=== PATIENT | male | born 1990 | race Caucasian/White ===

== ENCOUNTER → 2020-02-08 09:02 | Outpatient (CLI) | payer BC, SELFPAY ==
--- NOTE | 2020-02-08 09:11 | US_ITS ---
PROCEDURE: US TESTICULAR CLINICAL INDICATION: Intermittent left testicular pain for 5 months COMPARISON: No exams were available for comparison FINDINGS: Both testicles are of normal size and echogenicity. Right testicle measures 26 millimeters x 43 mm x 36 millimeters. The right epididymis measures 11 millimeters X 6 millimeters X 10 millimeters The left testicle measures 21 millimeters x 39 mm x 29 millimeters. The left epididymis measures 10 millimeters x 10 millimeters X 0 10 millimeters Normal bilateral doppler signal is demonstrated. There are no mass lesions. IMPRESSION: Negative Dictated by: Flash Blanca 02/08/2020 10:41 Electronically signed by Flash Blanca in [facility] 02/08/2020 10:41
== END ==
PROVIDERS: PCP Internal Medicine Adolescent Medicine; Visit Provider Nurse Practitioner Family
DX: N50.812 Left testicular pain (principal)
CPT/HCPCS: 76870

== ENCOUNTER → 2020-02-14 14:12 | Outpatient (CLI) | payer BC, SELFPAY | PROVIDERS: PCP Internal Medicine Adolescent Medicine; Visit Provider Nurse Practitioner Family | DX: R01.1 Cardiac murmur, unspecified (principal); R55 Syncope and collapse | CPT/HCPCS: 93306 ==

== ENCOUNTER 2020-08-17 16:40 | Day surgery (SDC) | payer BC, SELFPAY ==
[2020-08-17] VITALS (21 sets, daily range): BP systolic 123–173; BP diastolic 62–111; PULSE 55–94; RESP 12–21; TEMP 36.5–43; O2SAT 96–100; BMI 23.7
--- NOTE | 2020-08-17 17:01 | CT_ITS ---
Procedure: CT ABDOMEN PELVIS W CON Referring Doctor: Eloy Sandoval Patient Age:29Y CLINICAL INDICATION: abd pain Right lower quadrant pain started today COMPARISON: No exams were available for comparison TECHNIQUE: 75 cc Isovue 370 IV contrast utilized . No oral contrast given Helical the 1axial images obtained with sagittal and coronal reformats. All CT scans at the facility use one or more dose reduction, viz: automated exposure control, ma/kV adjustment per patient size (including targeted exams where dose is matched to indication, i.e. head), or iterative reconstruction technique. FINDINGS: Lower thorax: No acute finding lung bases clear heart normal size ABDOMEN: Liver: Unremarkable no masses or biliary dilatation. Gallbladder: Small gallbladder likely partially contracted. No radio opaque stones. Pancreas: No masses or peripancreatic fluid collections. Spleen: unremarkable small area splenosis medial the spleen the the Adrenals: unremarkable Kidneys/ureters: unremarkable no calculi nor urinary tract obstruction. Ureters unremarkable . Bladder: Upper normal wall thickness of may reflect the lack of distension at urinary bladder nondistended. No obvious stones or masses. Prostate unremarkable .. ABDOMEN & PELVIS: Stomach upper normal wall thickness stomach most likely reflecting lack distension.. Small bowel no dilatation or wall thickening.. Proximal small bowel upper normal in caliber. With slight increased fluid distal small bowel. Large bowel a moderate solid stool most evident at right colon Appendix: wall thickening with mild enhancement of mildly thickened appendiceal wall. The appendix is generous in size measuring nearly 9 mm diameter coronal image 24 and axial 96. Also note subtle ill-defined appearance at the margin of the appendix. These findings raise concern regarding early appendicitis.-Clinical correlation required.. No perforation. No no fluid collections of adjacent appendix. The would note scant amount of free fluid is seen at the right pelvic basin possibly related to the suspect early RLQ inflammatory changes,.. Peritoneum: .,. No free air. Lymph nodes: No enlarged lymph nodes apparent. The Vasculature: No evidence of abdominal aortic aneurysm. No retroperitoneal hemorrhage evident. Bones: No acute fracture IMPRESSION: Findings suggestive of minimal early acute appendicitis . Clinical correlation required. Scant free fluid right pelvic basin likely reflecting the above Borderline//Slight thickened appearance urinary bladder wall most likely reflect its lack of distension Dictated by: Dennis Langston MD 08/18/2020 00:09 Dennis Langston MD in [facility] 08/18/2020 00:09
[2020-08-17 17:13] LABS: Microscopic, Urine URINE MICROSCOPIC (MICROSCOPIC)
[2020-08-17 17:19] LABS: Appearance,Urine CLEAR (Clear); Bilirubin,Urine Negative (Negative); Blood, Urine 1+ (Negative); Color,Urine YELLOW (Yellow); Glucose,Urine (UA) Negative (Negative); Ketones,Urine Negative (Negative); Leukocyte Esterase,Urine Negative (Negative); Nitrate,Urine Negative (Negative); Protein,Urine Negative (Negative); Urobilinogen,Urine 0.2 EU/dl (0.2)
[2020-08-17 17:28] LABS: Amorphous Sediment,Urine Trace /lpf
[2020-08-17 17:35] LABS: Basophils % 0.4 % (0.1-2.0); Eosinophils % 0.1 % (0.1-12.0); Hematocrit 48.3 % (42.0-52.0); Hemoglobin 16.4 g/dL (14.1-18.0); Lymphocytes # 1.1 K/mm3 (0.7-4.5); Lymphocytes % 17.1 % (10-50); Mean Corpuscular HGB Conc 34.1 g/dL (31.8-35.4); Mean Corpuscular Hemoglobin 28.8 pg (27.0-31.2); Mean Corpuscular Volume 84.5 fl (80-94); Mean Platelet Volume 9.1 fl (7.4-10.4); Monocytes # 0.5 K/mm3 (0.1-1.0); Neutrophils % 74.4 % (37.0-80.0); Platelet Count 195 K/mm3 (142-424); Red Blood Count 5.71 M/mm3 (4.60-6.20); Red Cell Distribution Width 13.1 % (11.5-17.5); White Blood Count 6.7 K/mm3 (4.8-10.8)
--- NOTE | 2020-08-17 17:44 | HMH.EDABDPAI ---
ED Disposition Clinical Impression: Acute appendicitis Qualifiers: Acute appendicitis type: with localized peritonitis Appendicitis gangrene presence: unspecified whether gangrene present Appendicitis perforation presence: without perforation Appendicitis abscess presence: without abscess Qualified Code(s): K35.30 - Acute appendicitis with localized peritonitis, without perforation or gangrene Disposition: Admitted as Observation Condition on Discharge: Good Instructions: DI for Acute Abdominal Pain Referrals: Brandt Davis MD [Primary Care Provider] - 3 days - Critical Care Critical Care Time: No Attestation: On 08/17/20, the high probability of a clinically significant, sudden or life threatening deterioration of the following system(s) required my full and direct attention, intervention and personal management. The time I documented below is in addition to time spent performing reported procedures but includes the following listed in this critical care notation. Medical Decision Making - Cornelio Inquiry Pt receiving controlled substance: No Vital Signs: 08/17/20 16:41 Temperature 99.7 F H Temperature Source Oral Pulse Rate [Radial] 94 H Respiratory Rate 16 Blood Pressure [Right Arm] 156/111 H Blood Pressure Mean [Right Arm] 126 Blood Pressure Position [Right Arm] Sitting 02 Sat by Pulse Oximetry 97 Oxygen Delivery Method Room Air - Lab Data Lab Results 08/17/20 17:00: WBC 6.7, RBC 5.71, Hgb 16.4, Hct 48.3, MCV 84.5, MCH 28.8, MCHC 34.1, RDW 13.1, Plt Count 195, MPV 9.1, Neut % (Auto) 74.4, Lymph % (Auto) 17.1, Forrest % (Auto) 8.0, Eos % (Auto) 0.1, Baso % (Auto) 0.4, Neut # (Auto) 5.0, Lymph # (Auto) 1.1, Forrest # (Auto) 0.5, Eos # (Auto) 0.0, Baso # (Auto) 0.0 08/17/20 17:00: Sodium 137, Potassium 3.8, Chloride 101, Carbon Dioxide 25, Anion Gap 14.8, BUN 13, Creatinine 1.10, Estimated Creat Clear 115, Estimated GFR 80, Est GFR ( Amer) 96, Glucose 119 H, Calcium 10.0, Total Bilirubin 0.6, AST 40, ALT 33, Alkaline Phosphatase 82, Total Protein 8.7 H, Albumin 5.0, Globulin 3.7 H, Albumin/Globulin Ratio 1.4, Lipase 52 08/17/20 17:05: Urine Color Yellow, Urine Appearance Clear, Urine pH 6.0, Ur Specific [place] 1.010, Urine Protein Negative, Urine Glucose (UA) Negative, Urine Ketones Negative, Urine Blood 1+, Urine Nitrate Negative, Urine Bilirubin Negative, Urine Urobilinogen 0.2, Ur Leukocyte Esterase Negative, Urine RBC 3-5, Amorphous Sediment Trace 08/17/20 17:05: SARS-CoV-2 IgG Ab (Rapid) Positive A, SARS-CoV-2 IgM Ab (Rapid) Positive A Result diagrams: 08/17/20 17:00 08/17/20 17:00 Orders (Tests/Meds): ED MEDICATIONS Generic Name Dose Route Start Last Admin Trade Name Freq PRN Reason Stop Dose Admin Sodium Chloride 1,000 mls @ 999 mls/hr 08/17/20 18:45 Sod Chlor 0.9% 1000ml Bag IV 08/17/20 19:45 .Q1H1M POOL Discontinued Medications Generic Name Dose Route Start Last Admin Trade Name Freq PRN Reason Stop Dose Admin Iopamidol 75 ml 08/17/20 17:39 08/17/20 17:41 Iopamidol-370 (76%);100ml Bottle IV 08/17/20 17:40 75 ml ONCE ONE Administration Sodium Chloride 10 ml 08/17/20 17:39 08/17/20 17:41 Sodium Chloride 0.9% 10ml Syr (Rad Only) IV 08/17/20 17:40 10 ml ONCE ONE Administration ORDERS Category Date Time Status CT abdomen pelvis w con Stat Cat Scan 08/17/20 17:01 Taken Full Resp Panel w/COVID ([facility]) Routine Lab 08/17/20 18:38 Received Medical Decision Narrative: 29yo M evaluated for abdominal pain. HPI is concerning for acute appendicitis. Labs are pending at this time. Patient is already obtained CT of the abdomen and pelvis is pending read. Laboratory studies are unremarkable. CT my wet read appears to have an enlarged appendix. V RADS called to confirm early versus minimal appendicitis. Once receiving the call, surgery was consulted for further evaluation and possible appendectomy. Surgery plans to proceed with appendectomy at this time.
[2020-08-17 17:48] LABS: Chloride 101 mmol/L (98-107)
[2020-08-17 17:49] LABS: Potassium 3.8 mmoL/L (3.5-5.1); Sodium 137 mmol/L (136-145)
[2020-08-17 17:51] LABS: Alanine Aminotransferase 33 U/L (12-78); Alkaline Phosphatase 82 U/L (38-126); Anion Gap 14.8 mEq/L (5-15); Aspartate Amino Transferase 40 U/L (17-59); Bilirubin,Total 0.6 mg/dl (0.2-1.3); Blood Urea Nitrogen 13 mg/dl (9-20); Carbon Dioxide 25 mmol/L (22.0-30.0); Creatinine Clearance Estimated 115 mL/min (50-200); Estimated Glomerular Filt Rate 80 ml/min (>60); GFR (African American) 96 ML/MIN (>60)
[2020-08-17 17:52] LABS: Albumin/Globulin Ratio 1.4 (1.1-1.8); Globulin 3.7 g/dL (1.3-3.2); Glucose 119 mg/dl (74-100); Lipase 52 U/L (23-300); Total Protein,Serum 8.7 g/dl (6.3-8.2)
--- NOTE | 2020-08-17 18:11 | PC.NURSE ---
Dr leon speaking with Dr Dawson general surgery
[2020-08-17 18:37] LABS: Coronavirus 19 IgG Antibody Positive (Negative)
[2020-08-17 18:38] LABS: Coronavirus 19 IgM Antibody Positive (Negative)
--- NOTE | 2020-08-17 18:39 | PC.NURSE ---
Surgery team notified at this time that Dr Dawson wants to proceed with appendectomy at 1999. Return calls from Maxx @[phone], Catalina @ [phone], and Laura @ [phone]
--- NOTE | 2020-08-17 18:50 | PC.NURSE ---
pt and spouse updated on plan of care
[2020-08-17 19:02] LABS: Adenovirus,PCR Not Detected (NotDetected); Bordetella Pertussis Not Detected (NotDetected); Chlamydophila Pneumoniae, PCR Not Detected (NotDetected); Coronavirus 229E Not Detected (NotDetected); Coronavirus NL63 Not Detected (NotDetected); Coronavirus OC43 Not Detected (NotDetected); Coronovirus HKU1,PCR Not Detected (NotDetected); Human Metapneumovirus Not Detected (NotDetected); Influenza A, PCR Not Detected (NotDetected); Influenza AH1, 2009 Not Detected (NotDetected); Influenza AH1, PCR Not Detected (NotDetected); Influenza AH3,PCR Not Detected (NotDetected); Influenza B, PCR Not Detected (NotDetected); Mycoplasma Pneumoniae, PCR Not Detected (NotDetected); Parainfluenza 1, PCR Not Detected (NotDetected); Parainfluenza 2, PCR Not Detected (NotDetected); Parainfluenza 3, PCR Not Detected (NotDetected); Parainfluenza 4, PCR Not Detected (NotDetected); Respiratory Syncytial Virus Not Detected (NotDetected); Rhinovirus/Enterovirus Not Detected (NotDetected)
--- NOTE | 2020-08-17 19:23 | PC.NURSE ---
received patient report at this time
--- NOTE | 2020-08-17 19:32 | PC.NURSE ---
Surgery at bedside
[2020-08-17 20:19] LABS: Coronavirus 19, PCR Detected (NotDetected)
--- NOTE | 2020-08-17 20:19 | PC.NURSE ---
called lab to inform them the pts swab was positive for COVID
--- NOTE | 2020-08-17 21:24 | P.OP_ITS ---
Date of procedure: 08/17/20 Pre-op Diagnosis:: Acute appendicitis. Post-op Diagnosis:: Acute appendicitis. Procedure performed:: Laparoscopic appendectomy. Surgeon:: Rich Dawson MD BLOCK MAKING MACHINE OPERATOR:: Brandt Rogel Anesthesia: GETA Estimated blood loss (mL): 0 Operative findings:: Inflamed appendix. No rupture. Operative note:: Patient was properly identified and consent was obtained. Patient was brought to the operating room. Transferred the operating table. General anesthesia was administered. Abdomen was prepped and draped in standard surgical fashion. Midline abdominal incision was made above the umbilicus. 12 mm trocar was placed through the abdominal incision. Two 5 mm trochars were placed in the lower abdomen. Appendix was noted to be in a dependent position. Grasped and retracted anteriorly. Window was created in the mesoappendix. The appendix was divided at its base with an Endo MACK stapler. Staple line demonstrated no evidence of bleeding. Staple line intact. Mesoappendix was divided with harmonic scalpel. Appendix delivered to Endobag. Retrieved through the umbilical port site. Reinspection of the staple line demonstrated no evidence of dehiscence. No evidence of bleeding. Ports removed under direct visualization. Umbilical port site fascia was closed with interrupted Vicryl suture. Skin closed. Sterile applied. Patient taught procedure well. Transferred to the postanesthetic care unit that surgical or anesthetic complication. Condition: stable Disposition: same day Specimens:: Appendix. Complications:: None.
--- NOTE | 2020-08-17 21:37 | P.PN_ITS ---
[facility] Anesthesia Checklist - Patient Identification Patient Identification: Arm Band, Verbal (Name & ) - Structural Data Admitted From: Emergency Dept Planned Operative Procedure/s: lap appy Consent for Planned Operative Procedure(s) Verified: Yes Verified Documents: History and Physical - NPO Status Verified Time NPO: 13:00 - Additional verifications Patient : No Anesthesia Reactions: No Hx Blood Transfusions: No Blood Transfusion Reaction: No Cephalosporin Allergy: No Previous Colonoscopy: No - Cardiovascular Assessment Heart Sounds: S1 & S2 Pulse Strength: Baseline Pulse Rhythm: Regular Peripheral Edema: No - Airway Assessment C-Spine Mobility Assessed: Yes TMJ Mobility Assessed: Yes Dentition: Good Dentition - Neurological Assessment Level of Consciousness: Awake, Alert, Appropriate Hx Seizures: No Numbness or tingling in extremities: No - Anesthesia Plan Anesthesia Risk discussed: Yes Anesthesia Plan: Verified ASA Class: I Anesthesia Type: General [facility] History I have reviewed the patient's past medical history: Yes *Have you ever received a pneumonia vaccine?: Yes *Have you received a flu vaccine this season?: Yes Anesthesia experience/problems:: none - *Social History Alcohol Intake: current Alcohol Intake Frequency:: holidays/special occasions only Substance Use Type: other *Occupational Status:: employed *Travel in the last 8 weeks: None Family Hx:: Other
--- NOTE | 2020-08-17 21:39 | P.PN_ITS ---
[facility] Anesthesia Record Part I Intake, IV Amount: 600 Estimated blood loss (mL): 10 Urine output (mL): 0 Blood Products used (#): none Blood Pressure: 173/79 SaO2: 99 Pulse Rate: 62 Respiratory Rate: 18 Temperature: 98.1 F Patient is:: Drowsy, Nasal O2, Stable Stable to PACU at:: 21:33
--- NOTE | 2020-08-18 10:36 | HMH.ANESII ---
[facility] Anesthesia Record Part II Discharge Time: 22:03 Destination: Surgical Day Care (OP Surgery) PACU nurse assessment reviewed?: Yes Patient Condition:: Good Anesthesia Complications:: None Swallowing reflex intact?: Yes Cyanosis?: No Blood Pressure: 123/75 Pulse Rate: 68 Temperature: 97.7 F Mental Status: Alert & Oriented Pain level:: 5 Nausea and/or vomitting:: None Intake, IV Amount: 50
[2020-08-18 10:37] VITALS: BP 123/75; PULSE 68; TEMP 36.5
== END 2020-08-17 23:08 | disposition home or self-care (01) ==
LOC: UTC 16:43 → ER 16:55 → SDC 20:44
PROVIDERS: Emergency Provider Family Medicine; PCP Internal Medicine Adolescent Medicine; Visit Provider Surgery
PROC: 0DTJ4ZZ Resection of Appendix, Percutaneous Endoscopic Approach (ICD-10-PCS; CPT 44970; principal; 2020-08-17 20:00)
DX: K35.30 Acute appendicitis with localized peritonitis, without perforation or gangrene (principal); Z20.828 Contact with and (suspected) exposure to other viral communicable diseases
CPT/HCPCS: 44970; 74177; 80053; 81001; 83690; 85025; 86328; 87581; 87633; 87798; 96365; 99284; J0131; J1335; J2405; J2710; Q9967

== ENCOUNTER 2020-12-27 19:41 | Emergency (ER) | payer BC, SELFPAY ==
[2020-12-27 19:45] VITALS: BP 122/58; PULSE 83; RESP 21; TEMP 36.6; O2SAT 97; BMI 24.4
--- NOTE | 2020-12-27 20:34 | HMH.EDUTC ---
[facility] [place] Disposition Clinical Impression: Laceration of left hand Disposition: Home, Self-Care Condition on Discharge: Good Instructions: DI for Laceration Repair-Skin Glue Additional Instructions: Keep the wound clean and dry. Keep a dressing on it if you are going to be getting it dirty. Watch the for signs of infection, such as redness, swelling, drainage, fever. etc. take tylenol or ibuprofen for pain. Follow up with your regular doctor for any issues. GO TO THE ER FOR ANY WORSENING SYMPTOMS OR CONCERNS. Referrals: Brandt Davis MD [Primary Care Provider] - Time of Disposition: 20:39 Medical Decision Making - Medical Records Medical records reviewed: No: I reviewed the patient's medical records. - Cornelio Inquiry Pt receiving controlled substance: No Vital Signs: 12/27/20 19:45 12/27/20 20:45 Temperature 97.8 F 97.8 F Temperature Source Temporal Artery Scan Pulse Rate 83 Pulse Rate [Right Brachial] 83 Respiratory Rate 21 21 Blood Pressure 122/58 L Blood Pressure [Right Arm] 122/58 L Blood Pressure Mean [Right Arm] 79 Blood Pressure Source [Right Arm] Automatic Cuff Blood Pressure Position [Right Arm] Sitting 02 Sat by Pulse Oximetry 97 Oxygen Delivery Method Room Air [facility] [place] HPI - General Stated complaint: lac to r wrist Time Seen by Provider: 12/27/20 20:34 Mode of Arrival: Ambulatory Source of Information: Patient Limitations: No Limitations Description of Symptoms (Recalled from Triage Doc. 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 PATIENT IS UP TO DATE ON TDAP HEENT Symptoms (Recalled from RN notes): No Resp Symptoms (Recalled from RN notes): No Skin Symptoms (Recalled from RN notes): Yes MS Symptoms (Recalled from RN notes): No Functional Status (Recalled from RN notes): WNL - History of Present Illness Provider Complaint: He states that he was at home cutting something with a razor knife. He slipped and cut the lateral aspect of his left hand. His tetanus immunization is up to date. - Related Data Home Medications Medication Instructions Recorded Confirmed No Known Home Medications 09/04/18 12/27/20 Allergies Allergy/AdvReac Type Severity Reaction Status Date / Time No Known Allergies Allergy Verified 08/29/20 10:46 - Worker's Comp Is this a Worker's Comp case?: No [facility] History - Hepatitis A Screen Drug use history?: No High risk sexual behaviors?: No History of sexually transmitted infection?: No Currently employed?: No Childcare worker?: No Do you have indoor plumbing?: Yes Do you have electricity?: Yes Attestation statement:: This patient has been screened for Hepatitis A risk factors. I have reviewed the patient's past medical history: Yes Medical History: Denies:: Seizures Other Medical History: Denies: Blood Transfusion Reaction Other Surgeries: Yes: Appendectomy - Social History Smoking Status: Never smoker Alcohol Intake: never Alcohol Intake Frequency:: holidays/special occasions only Substance Use Type: other Occupational Status: other Family Hx:: Other ROS Obtained: Yes All systems reviewed & no additional complaints - Constitutional Constitutional: Denies chills, Denies fever(s) - Integumentary/Breasts Skin/Breast: Reports as per HPI - Neurologic Neurologic: Denies tingling/numbness/burning sensations Physical Exam - General General appearance: alert, in no apparent distress - Head Head exam: atraumatic, normocephalic, normal inspection - Eye Eye exam: Present: normal appearance, PERRL, EOMI - ENT ENT exam: Present: normal exam, normal oropharynx, mucous membranes moist, TM's normal bilaterally, normal external ear exam - Neck Neck exam: Present: normal inspection, full ROM, trachea midline. Absent: meningismus, lymphadenopathy - Chest Chest inspection: Present: normal inspection, symmetric chest wall rise. Absent: tenderness - Respiratory R
[2020-12-27 20:45] VITALS: BP 122/58; PULSE 83; RESP 21; TEMP 36.6; O2SAT 97
== END 2020-12-27 20:49 | disposition home or self-care (01) ==
PROVIDERS: Emergency Provider Nurse Practitioner Family; PCP Internal Medicine Adolescent Medicine
DX: S61.412A Laceration without foreign body of left hand, initial encounter (principal); W26.0XXA Contact with knife, initial encounter; Y92.89 Other specified places as the place of occurrence of the external cause
CPT/HCPCS: 12001; 99202; G0463

== ENCOUNTER 2023-11-12 16:17 | Emergency (ER) | payer BC, SELFPAY ==
[2023-11-12 16:40] VITALS: BP 153/85; PULSE 90; RESP 20; TEMP 36.9; O2SAT 96; BMI 23.7
--- NOTE | 2023-11-12 16:48 | ED_ITS ---
Discharge Plan Disposition Patient Disposition: Home, Self-Care Condition: Good Prescriptions Prescriptions: New azithromycin [Zithromax] 250 mg tablet 250 mg PO UD DOSE PK Qty: 6 0RF Rx Instructions: Take two (2) tablets today, then one (1) tablet days #2 thru #5 benzonatate 100 mg capsule 100 mg PO TIDP PRN (Reason: Cough) Qty: 30 0RF methylprednisolone 4 mg Tablets,Dose Pack 4 mg PO DIRECTED 6 Days Qty: 21 0RF Rx Instructions: Take 1 pack as directed for 6 days Referrals Follow up/Referrals: Brandt Davis MD [Primary Care Provider] - See instructions Activity Restrictions/Add. Instructions Additional Instructions/Restrictions: Drink plenty of fluids. Take tylenol or ibuprofen for pain or fever. Take the medications as directed. Follow up with your regular doctor. GO TO THE ER FOR ANY WORSENING SYMPTOMS Don't start the oral steroids until tomorrow since you had the steroid shot here today. Clinical Impressions Clinical Impression: Acute bronchitis Instructions Patient Instructions: Acute Bronchitis, Methylprednisolone, Azithromycin, Dexamethasone Injection Discharge ED Provider: Liam Lyons [facility] General Stated complaint: cough Time Seen by Provider: 11/12/23 16:48 History of Present Illness Provider Complaint: He states that for the past 2 weeks he has had chest congestion and a productive cough. He denies any fever/chills/body aches. Related Data Previous Rx's Medication Instructions Recorded azithromycin 250 mg tablet 250 mg PO UD DOSE PK #6 tabs 11/12/23 (Zithromax) benzonatate 100 mg capsule 100 mg PO TIDP PRN Cough #30 caps 11/12/23 methylprednisolone 4 mg tablets in 4 mg PO DIRECTED 6 days #21 tabs 11/12/23 a dose pack Allergies Allergy/AdvReac Type Severity Reaction Status Date / Time No Known Allergies Allergy Verified 08/29/20 10:46 [facility] Disclaimer: The information contained in this section may have been updated after the patient was seen, as this information can be updated by other users. Social History Smoking Status: Never smoker alcohol intake: never substance use type: other current occupational status: other Travel in the last 8 weeks: None ROS Obtained: Yes All systems reviewed & no additional complaints except as documented Constitutional Constitutional: Reports chills and Reports fever(s) Eyes Eyes: Denies eye discharge ENT Ears, Nose, Mouth, and Throat: Reports as per HPI Cardiovascular Cardiovascular: Denies chest pain Respiratory Respiratory: Denies shortness of breath, Reports chest congestion, Reports cough, Denies stridor and Denies wheezing Gastrointestinal Gastrointestingal: Reports nausea; Denies abdominal pain, constipation, cramping, diarrhea or vomiting Musculoskeletal Musculoskeletal: Denies arthralgias Integumentary/Breasts Skin/Breast: Denies rash Neurologic Neurologic: Denies paresthesias Allergic/Immunologic Allergic/Immunologic: Denies wheezing Physical Exam General General appearance: alert and in no apparent distress Eye Eye exam: Present normal appearance, PERRL and EOMI ENT ENT exam: Present mucous membranes moist and normal external ear exam Expanded ENT Exam External ear exam: Present normal external inspection TM/Canal exam: Bilateral TM: erythema and bulging Nose exam: Absent sinus tenderness Nasal speculum exam: Bilateral: normal Mouth exam: Present normal external inspection; Absent drooling Teeth exam: Present normal inspection Throat exam: Present tonsillar erythema and tonsillomegaly Neck Neck exam: Present normal inspection, full ROM and trachea midline; Absent tenderness, lymphadenopathy or thyromegaly Chest Chest inspection: Present normal inspection and symmetric chest wall rise; Abse nt tenderness or rash Respiratory Respiratory exam: Present normal lung sounds bilaterally; Absent respiratory distress, wheezes, stridor or accessory muscle use Cardiovascular Cardiovascular exam: Present regular rate, normal rhythm and normal heart sounds Abdominal Exam Abdominal exam: Present soft; Absent distention, tenderness, guarding, rebound or rigidity Extremities Exam Extremities exam: Present normal inspection, full ROM and normal capillary refill; Absent tenderness or calf tenderness Back Exam Back exam: Present normal inspection and full ROM; Absent tenderness Neurological Exam Neurological exam: Present alert and oriented X3 Psychiatric Psychiatric exam: Present normal affect and normal mood Skin Skin exam: Present warm, dry, intact and normal color Lymphatic Lymphatic Findings: no adenopathy Medical Decision Making Medical Records Medical records reviewed: No I reviewed the patient's medical records. Cornelio Inquiry Pt receiving controlled substance: No
[2023-11-12 17:35] VITALS: BP 153/85; PULSE 90; RESP 20; TEMP 36.9; O2SAT 96
[2023-11-12] MEDS: DEXAMETHASONE 4MG/ML 1ML VIAL 8 MG IM (17:35)
== END 2023-11-12 17:44 | disposition home or self-care (01) ==
PROVIDERS: Emergency Provider Nurse Practitioner Family; PCP Internal Medicine Adolescent Medicine
DX: J20.9 Acute bronchitis, unspecified (principal); R05.9 Cough, unspecified
CPT/HCPCS: 96372; 99212; 99214; G0463

== ENCOUNTER 2024-10-26 14:21 | Outpatient (CLI) | payer BC, SELFPAY ==
[2024-10-26 15:08] LABS: Basophils # 0.1 K/mm3 (0-0.2); Basophils % 0.8 % (0.1-2.0); Eosinophils # 0.2 K/mm3 (0.0-0.4); Eosinophils % 1.7 % (0.1-12.0); Hematocrit 40.8 % (42.0-52.0); Hemoglobin 13.9 g/dL (14.1-18.0); Lymphocytes % 21.8 % (10-50); Mean Corpuscular HGB Conc 34.1 g/dL (31.8-35.4); Mean Corpuscular Hemoglobin 29.1 pg (27.0-31.2); Mean Corpuscular Volume 85.4 fl (80-94); Mean Platelet Volume 11.3 fl (7.4-10.4); Monocytes # 0.7 K/mm3 (0.1-1.0); Platelet Count 261 K/mm3 (142-424); Red Blood Count 4.78 M/mm3 (4.60-6.20); Red Cell Distribution Width 12.3 % (11.5-17.5)
[2024-10-26 15:16] LABS: Anion Gap 11.8 mEq/L (5-15); Blood Urea Nitrogen 18 mg/dl (9-20); Calcium 9.4 mg/dl (8.4-10.2); Carbon Dioxide 26 mmol/L (22.0-30.0); Chloride 105 mmol/L (98-107); Estimated Glomerular Filt Rate 78 ml/min (>60); GFR (African American) 94 ML/MIN (>60); Glucose 85 mg/dl (74-100); Potassium 3.8 mmoL/L (3.5-5.1); Sodium 139 mmol/L (136-145)
== END 2024-10-26 23:59 | disposition home or self-care (01) ==
LOC: PREOP 14:21
PROVIDERS: PCP Nurse Practitioner Family; Visit Provider Surgery
DX: N49.2 Inflammatory disorders of scrotum (principal)
CPT/HCPCS: 80048; 85025

== ENCOUNTER 2024-10-27 06:58 | Day surgery (SDC) | payer BC, SELFPAY ==
[2024-10-26 15:21] VITALS: BMI 26.2
[2024-10-27] VITALS (10 sets, daily range): BP systolic 94–129; BP diastolic 51–88; PULSE 62–81; RESP 10–16; TEMP 36.3–36.7; O2SAT 94–99
[2024-10-27] MEDS: 0.9 % SODIUM CHLORIDE 1000ML 1,000 ML 25 ML IV (07:25)
--- NOTE | 2024-10-27 07:39 | P.PNANES_ITS ---
[facility] Disclaimer: The information contained in this section may have been updated after the patient was seen, as this information can be updated by other users. Medical History No significant past medical history Surgical History History of laparoscopic appendectomy Family History Other No significant family history Social History (Updated 10/27/24 @ 07:15 by Chantal Lutz RN) Smoking Status: Never smoker alcohol intake: never substance use type: other current occupational status: employed Travel in the last 8 weeks: None Have you lived/traveled outside [place] in past 30 days?: No Contact w/someone who lives/traveled outside US past 30 days?: No Exposure to someone with infectious disease in past 14 days?: No Do you have a fever (greater than 100.4 F or 38 C)?: No Have you tested positive for COVID-19: No Exposed to someone with COVID-19 in past 14 days?: No Do you have a sore throat?: No Do you have a cough?: No Do you have any weakness?: No Are you experiencing any nausea/vomitting?: No Do you have any diarrhea?: No Are you experiencing any unusual bleeding?: No Do you have any muscle aches/pain?: No Do you have any abdominal pain?: No Are you experiencing loss of taste or smell?: No [facility] Anesthesia Checklist Patient Identification Patient Identification: Arm Band Structural Data Admitted From: Home Planned Operative Procedure/s: I&D Scrotal Abscess Consent for Planned Operative Procedure(s) Verified: Yes Verified Documents: Surgical Consent and History and Physical NPO Status Verified Time NPO: 00:00 Additional verifications Anesthesia Reactions: No Hx Blood Transfusions: No Blood Transfusion Reaction: No Airway Assessment Mallampati Score:: Class II C-Spine Mobility Assessed: Yes TMJ Mobility Assessed: Yes Dentition: Good Dentition Neurological Assessment Level of Consciousness: Awake, Alert and Appropriate Anesthesia Plan Anesthesia Risk discussed: Yes Anesthesia Plan: Verified ASA Class: I Anesthesia Type: General
[2024-10-27] MEDS: METRONIDAZ/SOD CHL 500 MG/100 ML PIGGYBACK 100 MG IV (07:50)
[2024-10-27] MEDS: CEFAZOLIN SODIUM 2 GM in 0.9 % SODIUM CHLORIDE 100 ML IV (07:50)
[2024-10-27] MEDS: LIDOCAINE 1% 20ML MDV 20 ML (08:04)
--- NOTE | 2024-10-27 08:13 | P.OP_ITS ---
Date of procedure: 10/27/24 Pre-op Diagnosis:: Left scrotal abscess Post-op Diagnosis:: Same Procedure performed:: Incision and drainage of left scrotal abscess Surgeon:: Jay Jay Zimmerman MD NANOTECHNICIAN:: Liam Kidd Anesthesia: local and LMA Estimated blood loss (mL): 5 Operative findings:: Focal pocket of purulence with surrounding induration Operative note:: After informed consent was obtained the patient was taken to the operating room and placed in the supine position. General anesthesia with laryngeal mask airway was achieved. His scrotum/surrounding region was prepped and draped in a sterile fashion. Electrocautery was utilized to incise the lateral margin of the palpable abscess. Purulent fluid was evacuated. Surrounding indurated tissue noted. The cavity was packed with gauze and the entire region was infiltrated with 1% lidocaine. Dressings were applied and the patient was transferred to recovery in stable condition. Condition: stable Disposition: PACU Specimens:: None Complications:: No immediate
--- NOTE | 2024-10-27 08:33 | EXP.ANES.I ---
[facility] Anesthesia Record Part I Anesthesia Record I Intake, IV Amount: 750 Hydration: Adequate Estimated blood loss (mL): 5 Urine output (mL): 0 Blood Products used (#): none Blood Pressure: 96/59 SaO2: 94 Pulse Rate: 67 Airway Patency: Patent Respiratory Rate: 10 Temperature: 97.4 F Patient is:: Drowsy and Stable Stable to PACU at:: 08:21
--- NOTE | 2024-10-27 09:18 | EXP.ANES.II ---
[facility] Anesthesia Record Part II Anesthesia Record Part II Discharge Time: 08:51 Destination: Surgical Day Care (OP Surgery) PACU nurse assessment reviewed?: Yes Patient Condition:: Good Anesthesia Complications:: None Swallowing reflex intact?: Yes Airway Patency: Patent Cyanosis?: No Blood Pressure: 106/52 SaO2: 98 Respiratory Rate: 16 Pulse Rate: 81 Temperature: 97.4 F Mental Status: Alert & Oriented Pain level:: 0 Nausea and/or vomitting:: None Intake, IV Amount: 0 Hydration: Adequate
== END 2024-10-27 09:25 | disposition home or self-care (01) ==
PROVIDERS: PCP Internal Medicine Adolescent Medicine; Visit Provider Surgery
PROC: (CPT 55100; principal; 2024-10-27 08:30)
DX: N49.2 Inflammatory disorders of scrotum (principal)
CPT/HCPCS: 55100; 96374; J0690; J1100; J2250; J2405; J3010; J7030

== ENCOUNTER 2024-12-14 13:56 | Outpatient (CLI) | payer BC, SELFPAY ==
--- NOTE | 2024-12-14 13:57 | CT_ITS ---
FINAL REPORT TECHNIQUE: Axial images through the abdomen and pelvis were performed without contrast. This study was performed with techniques to keep radiation doses as low as reasonably achievable, (ALARA). Individualized dose reduction techniques using automated exposure control or adjustment of mA and/or kV according to the patient's size were employed. CLINICAL HISTORY: STONE PROTOCOL, LEFT FLANK PAIN, HEMATURIA COMPARISON: None FINDINGS: Abdomen: The lung bases are clear. The liver parenchyma is homogeneous. The gallbladder is present. The spleen, pancreas, and adrenals are unremarkable. There are tiny nonobstructing right renal stones noted. There is mild left hydronephrosis and mild hydroureter to the level of a small 2 mm stone in the distal left ureter, best seen on image #114 of series 3. There is mild stranding surrounding the distal ureter at this level. Pelvis: The urinary bladder is unremarkable. The appendix is not visualized and may be surgically absent. There is no pelvic mass or free fluid. IMPRESSION: Mild left hydronephrosis and hydroureter to the level of a small 2 mm stone in the distal left ureter as described. There is mild stranding surrounding the distal ureter at this level consistent with inflammatory change. Tiny nonobstructing right renal stones are present as well. Reviewed, Interpreted and Dictated by Rich Bai MD Transcribed by Lena Calhoun Authenticated and [facility]
== END 2024-12-14 23:59 | disposition home or self-care (01) ==
LOC: RAD 13:56
PROVIDERS: PCP Nurse Practitioner Family; Visit Provider Nurse Practitioner Family
DX: N13.30 Unspecified hydronephrosis (principal)
CPT/HCPCS: 74176

== ENCOUNTER 2024-12-14 22:31 | Emergency (ER) | payer BC, SELFPAY ==
[2024-12-14 22:42] VITALS: BP 135/92; PULSE 65; RESP 18; TEMP 36.7; O2SAT 100; BMI 25.7
--- NOTE | 2024-12-14 22:47 | ED_ITS ---
Discharge Plan Disposition Patient Disposition: Home, Self-Care Condition: Good Prescriptions Prescriptions: New ondansetron 4 mg tablet,disintegrating 4 mg PO Q6H PRN (Reason: nausea and vomiting) Qty: 12 0RF oxycodone 5 mg tablet 5 mg PO Q6H PRN (Reason: pain) Qty: 12 0RF No Action clindamycin HCl 300 mg Capsule 300 mg PO TID Referrals Follow up/Referrals: Patel Loja MD [Staff Physician] - See instructions (2mm stone at UVJ, should pass itself, needs follow up) Brandt Davis MD [Primary Care Provider] - See instructions Activity Restrictions/Add. Instructions Additional Instructions/Restrictions: Your evaluated in the ER and are appropriate for discharge at this time. Continue taking the tamsulosin that you were previously prescribed. Take Tylenol and ibuprofen if needed for pain, do not exceed the recommended dose on the bottle. Drink water and eat small snack each time you take these medications to avoid side effects. If these medications do not control your pain, then take the oxycodone if needed for severe breakthrough pain. This medication may make you sleepy, do not drive or operate machinery. It has the potential for addiction so only take this medication as directed. Drink plenty of fluids to help pass the stone. Urinate through the strainer to capture the stone when it passes. Please make an appointment with Dr. Loja for urology follow-up. Also follow-up closely with your primary care doctor for reevaluation. Return to the ER with any new, worsening, or otherwise concerning symptoms. Clinical Impressions Clinical Impression: Acute left flank pain Urolithiasis Qualifiers: Urinary calculus location: ureter Qualified Code(s): N20.1 - Calculus of ureter Instructions Patient Instructions: Kidney Stones -- Adult Print Language Print Language: Grenadian Discharge ED Provider: Juvencio Piña General Adult HPI General Chief complaint: Back Pain/Injury Stated complaint: back pain and abdominal pain Time Seen by Provider: 12/14/24 22:34 Mode of Arrival: Ambulatory Source of Information: Patient Description of Symptoms (Recalled from ER Triage Doc. by RN): Pt to ED with c/o left flank pain starting this morning. pt reports he was seen by PCP and had CT scan done. denies urinary sx. History of Present Illness HPI narrative: This is a 34-year-old male, otherwise healthy who presents with left flank pain that began this morning. States that it was very severe this morning causing him to vomit. Was seen by his PCP and had an outpatient CT done revealing a kidney stone. Was prescribed Flomax by his primary care doctor and told that he may have already passed the kidney stone. States that his pain recurred this evening. 8 out of 10 on arrival however improving to 6 out of 10 by the time I evaluate patient. Reports swollen of blood in the urine. Denies any fever. Denies any testicular pain or swelling. Related Data Home Medications ?Medication ?Instructions ?Recorded ?Confirmed clindamycin HCl 300 mg capsule 300 mg PO TID 10/26/24 11/02/24 Previous Rx's ?Medication ?Instructions ?Recorded ondansetron 4 mg disintegrating 4 mg PO Q6H PRN nausea and 12/14/24 tablet vomiting #12 tabs oxycodone 5 mg tablet 5 mg PO Q6H PRN pain #12 tabs 12/14/24 Allergies Allergy/AdvReac Type Severity Reaction Status Date / Time No Known Allergies Allergy Verified 11/02/24 14:10 [facility] Disclaimer: The information contained in this section may have been updated after the patient was seen, as this information can be updated by other users. Medical History (Updated 12/14/24 @ 22:51 by Juvencio Piña MD) No significant past medical history Surgical History (Updated 11/02/24 @ 14:10 by KRISTEN Rodriguez) History of incision and drainage History of laparoscopic appendectomy Family History Other No significant family history Social History Smoking Status: Never smoker alcohol intake: never substance use type: other current occupational status: employed Travel in the last 8 weeks?: None Have you lived/traveled outside [place] in past 30 days?: No Contact w/someone who lives/traveled outside US past 30 days?: No Exposure to someone with infectious disease in past 14 days?: No Do you have a fever (greater than 100.4 F or 38 C)?: No Have you tested positive for COVID-19?: No Exposed to someone with COVID-19 in past 14 days?: No Do you have a sore throat?: No Do you have a cough?: No Do you have any weakness?: No Do you have any diarrhea?: No Are you experiencing any unusual bleeding?: No Do you have any muscle aches/pain?: No Do you have any abdominal pain?: No Are you experiencing loss of taste or smell?: No Other Medical History Have you received the Flu Vaccine for this season: Yes Have you received the Pneumonia Vaccine: No ROS Obtained: Yes All systems reviewed & no additional complaints except as documented Physical Exam General General appearance: alert and in no apparent distress Head Head exam: atraumatic Eye Eye exam: Present normal appearance, PERRL and EOMI Neck Neck exam: Present normal inspection and full ROM Chest Chest inspection: Present symmetric chest wall rise Respiratory Respiratory exam: Present normal lung sounds bilaterally; Absent respiratory distress Cardiovascular Cardiovascular exam: Present regular rate and normal rhythm Abdominal Exam Abdominal exam: Present soft and other (No flank tenderness); Absent distention, tenderness, guarding or rebound Extremities Exam Extremities exam: Present normal inspection Neurological Exam Neurological exam: Present alert and oriented X3 Psychiatric Psychiatric exam: Present normal affect and normal mood Skin Skin exam: Present warm and dry Medical Decision Making Medical Records Medical records reviewed: Yes I reviewed the patient's medical records. Screening: Per USPSTF and CDC recommendations, given the prevalence of disease in our region, it is our hospital?s policy to screen for HIV and viral Hepatitis for all patients aged 18 and over and those with ongoing risk factors. MR Comment: CT abdomen pelvis without IV contrast that was performed today, revealing distal left ureter 2 mm stone with mild left hydronephrosis and hydroureter Cornelio Inquiry Pt receiving controlled substance: No Vital Signs: 12/14/24 22:42 Temperature 98.0 F Temperature Source Oral Pulse Rate [Left Radial] 65 Respiratory Rate 18 Blood Pressure [Right Arm] 135/92 H Blood Pressure Mean [Right Arm] 106 Blood Pressure Source [Right Arm] Automatic Cuff Blood Pressure Position [Right Arm] Sitting 02 Sat by Pulse Oximetry 100 Oxygen Delivery Method Room Air Lab Data Lab Results 12/14/24 22:37: Urine Color Yellow, Urine Appearance Slightly cloudy, Urine pH 7.0, Ur Specific [place] 1.020, Urine Protein Negative, Urine Glucose (UA) Negative, Urine Ketones Negative, Urine Blood 1+ A, Urine Nitrate Negative, Urine Bilirubin Negative, Urine Urobilinogen 0.2, Ur Leukocyte Esterase Negative, Urine RBC 10-20, Urine WBC 3-5, Amorphous Sediment 3+, Urine Bacteria 2+, Urine Mucus 1+ 12/14/24 22:53: WBC 7.5, RBC 4.65, Hgb 13.7 L, Hct 40.1 L, MCV 86.2, MCH 29.5, MCHC 34.2, RDW 12.5, Plt Count 259, MPV 11.8 H, Neut % (Auto) 62.3, Lymph % (Auto) 29.0, [place] % (Auto) 6.2, Eos % (Auto) 1.5, Baso % (Auto) 0.7, Neut # (Auto) 4.7, Lymph # (Auto) 2.2, [place] # (Auto) 0.5, Eos # (Auto) 0.1, Baso # (Auto) 0.1, Sodium 138, Chloride 106, Carbon Dioxide 24, BUN 14, Creatinine 1.20, Estimated Creat Clear 110, Estimated GFR 70, Est GFR ( Amer) 84, G lucose 148 H, Calcium 9.8, Total Bilirubin 0.8, AST 39, ALT 37, Alkaline Phosphatase 71, Total Protein 7.3, Albumin 4.9, Globulin 2.4, Albumin/Globulin Ratio 2.0 H 12/14/24 22:53 12/14/24 22:53 Orders (Tests/Meds): ED MEDICATIONS Discontinued Medications Generic Name Dose Route Start Last Admin Trade Name Freq PRN Reason Stop Dose Admin Ketorolac Tromethamine 15 mg 12/14/24 22:46 12/14/24 22:49 Ketorolac 30mg/Ml Vial IV 12/14/24 22:47 15 mg ONCE ONE Administration Oxycodone HCl 5 mg 12/14/24 22:46 12/14/24 22:49 Oxycodone 5mg Immediate Release Tablet PO 12/14/24 22:47 5 mg ONCE ONE Administration ORDERS Category Date Time Status CBC w/Auto Diff [Complete Blood Count Auto Diff] Stat Lab 12/14/24 22:53 Completed CMP [Comprehensive Metabolic Panel] Stat Lab 12/14/24 22:53 Results HIV Combo Stat Lab 12/14/24 22:53 Received Hepatitis C Ab Qual. W/ RFX Stat Lab 12/14/24 22:53 Received Urinalysis and Microscopic Stat Lab 12/14/24 22:37 Completed Urine Culture Stat Micro 12/14/24 22:37 Received Medical Decision Narrative: In summary, this otherwise healthy 34-year-old male presents to the emergency department today with left flank pain that began this morning. On initial evaluation patient is afebrile, hemodynamically stable, nontoxic-appearing. Differential diagnosis includes but is not limited to urolithiasis, pyelonephritis, hydronephrosis, JUDITH. Based on these concerns, I ordered CBC, CMP, urinalysis. Considered CT abdomen pelvis without IV contrast, however this was performed earlier today and available to review, independently interpreted by me revealing of a small 2 mm stone in distal ureter with proximal mild hydronephrosis.. Patient received intramuscular Toradol and oxycodone for treatment. Patient already prescribed Flomax by PCP. Labs personally reviewed demonstrate unremarkable CBC and CMP, no JUDITH, no clear UTI. On reassessment patient reporting significant symptomatic improvement. Appropriate for discharge with urology follow-up at this time. Patient is likely to pass urolithiasis without intervention. Already prescribed Flomax by PCP. Prescribed a course of oxycodone for breakthrough pain and counseled on treatment at home with Motrin and Flomax. Critical Care Critical Care Time Critical Care Time: No
[2024-12-14] MEDS: OXYCODONE 5MG IMMEDIATE RELEASE TABLET 5 MG PO (22:49)
[2024-12-14] MEDS: KETOROLAC 30MG/ML VIAL 15 MG IV (22:49)
[2024-12-14 23:00] VITALS: BP 118/95; PULSE 73; O2SAT 97
[2024-12-14 23:01] LABS: Microscopic, Urine URINE MICROSCOPIC (MICROSCOPIC)
[2024-12-14 23:02] LABS: Bilirubin,Urine Negative (Negative); Blood, Urine 1+ (Negative); Color,Urine YELLOW (Yellow); Glucose,Urine (UA) Negative (Negative); Ketones,Urine Negative (Negative); Leukocyte Esterase,Urine Negative (Negative); Nitrate,Urine Negative (Negative); Protein,Urine Negative (Negative); Urobilinogen,Urine 0.2 EU/dl (0.2)
[2024-12-14 23:07] LABS: Appearance,Urine Slightly Cloudy (Clear)
[2024-12-14 23:14] LABS: Basophils # 0.1 K/mm3 (0-0.2); Basophils % 0.7 % (0.1-2.0); Eosinophils # 0.1 Kmm3 (0.0-0.4); Eosinophils % 1.5 % (0.1-12.0); Hematocrit 40.1 % (42.0-52.0); Hemoglobin 13.7 g/dL (14.1-18.0); Lymphocytes # 2.2 K/mm3 (0.7-4.5); Mean Corpuscular HGB Conc 34.2 g/dL (31.8-35.4); Mean Corpuscular Hemoglobin 29.5 pg (27.0-31.2); Mean Corpuscular Volume 86.2 fl (80-94); Mean Platelet Volume 11.8 fl (7.4-10.4); Monocytes # 0.5 K/mm3 (0.1-1.0); Monocytes % 6.2 % (1.7-9.3); Neutrophils # 4.7 K/mm3 (1.8-7.8); Neutrophils % 62.3 % (37.0-80.0); Nucleated Red Blood Cells # 0 10^3/uL; Nucleated Red Blood Cells % 0 %; Platelet Count 259 K/mm3 (142-424); Red Blood Count 4.65 M/mm3 (4.60-6.20); Red Cell Distribution Width 12.5 % (11.5-17.5); Red Cell Distribution Width-SD 38.9 fL; White Blood Count 7.5 K/mm3 (4.8-10.8)
[2024-12-14 23:19] LABS: Albumin Level 4.9 g/dl (3.5-5.0); Chloride 106 mmol/L (98-107); Sodium 138 mmol/L (136-145)
[2024-12-14 23:20] LABS: Amorphous Sediment,Urine 3+ /lpf; Bacteria,Urine 2+ /lpf; Mucus,Urine 1+ /lpf
[2024-12-14 23:22] LABS: Alanine Aminotransferase 37 U/L (12-78); Aspartate Amino Transferase 39 U/L (17-59); Blood Urea Nitrogen 14 mg/dl (9-20); Carbon Dioxide 24 mmol/L (22.0-30.0); Creatinine Clearance Estimated 110 mL/min (50-200); Estimated Glomerular Filt Rate 70 ml/min (>60); GFR (African American) 84 ML/MIN (>60)
[2024-12-14 23:23] LABS: Alkaline Phosphatase 71 U/L (38-126); Bilirubin,Total 0.8 mg/dl (0.2-1.3); Calcium 9.8 mg/dl (8.4-10.2); Globulin 2.4 g/dL (1.3-3.2); Glucose 148 mg/dl (74-100); Total Protein,Serum 7.3 g/dl (6.3-8.2)
[2024-12-14 23:30] VITALS: BP 135/83; PULSE 72; O2SAT 97
[2024-12-14 23:46] LABS: Anion Gap 11.8 mEq/L (5-15); Potassium 3.8 mmoL/L (3.5-5.1)
[2024-12-14 23:51] VITALS: BP 135/83; PULSE 64; RESP 14; TEMP 36.6; O2SAT 100
[2024-12-15 00:03] LABS: HIV Combo NEGATIVE (Negative)
[2024-12-15 00:12] LABS: Hepatitis C Ab Qual. W/ RFX NEGATIVE (Negative)
== END 2024-12-14 23:52 | disposition home or self-care (01) ==
PROVIDERS: Emergency Provider Student in an Organized Health Care Education/Training Program; PCP Internal Medicine Adolescent Medicine
DX: R10.32 Left lower quadrant pain (principal); N20.1 Calculus of ureter; Z11.59 Encounter for screening for other viral diseases; Z11.4 Encounter for screening for human immunodeficiency virus [HIV]
CPT/HCPCS: 80053; 81001; 85025; 86803; 87086; 87389; 96374; 99284; J1885

== ENCOUNTER 2025-03-27 11:36 | Outpatient (CLI) | payer BC, SELFPAY ==
--- OUTSIDE RECORDS SUMMARY | 2025-03-27 11:39 | XMS_ITS | Patient Health Record ---
[facility] [address] [place] [id number] Care Team Providers Care Cribbing Setter Name Role Phone Dionisio Valencia Unavailable [phone] Brittany Hester Unavailable [phone] Allergies No Known Allergies Results Component Value Reference Range Notes CBC Fingerstick (in house) Reviewed date:05/09/2024 12:51:03 PM Interpretation: Performing Lab: Notes/Report: wbc 5.2 3.5 - 10 lym 32.1 15 - 50 mid 7.6 2 - 15 gran 60.3 35 - 80 rbc 4.97 3.5 - 5.5 hgb 14.7 11.5 - 16.5 hct 43.7 35 - 55 mcv 87.9 75 - 100 mch 29.6 25 - 35 mchc 33.6 31 - 38 plat 192 100 - 400 Reason For Referral No Information Medications Medication SIG (Take, Route, Fr equency, Duration) Notes Start Date End Date Status Omeprazole 40 MG 1 capsule 30 minutes before morning meal Orally Once a day; Duration: 30 day(s) 05/09/2024 Active Immunizations Vaccine Route Administration Date Status Comme nts Fluzone PF Quad (6-35 months) Unknown 07/26/2019 Admini stered Fluzone Quad (6months&older) Unknown 08/09/2018 Adminis tered Hepatitis A (adult) Unknown 07/21/2018 Administered Tetanus Tdap-Adacel (over 7yrs) Unknown 07/21/2018 Admi nistered Problems Problem Type SNOMED Code ICD Code Onset Dates Problem Status W/U Status Risk Notes Problem GERD (gastroesopha geal reflux disease) (K21.9) Active confirmed Vital Signs Heart Rate 75 /min 05/09/2024 Blood pressure diastolic 86 mm Hg 05/09/2024 Height 74 in 05/09/2024 Blood pressure systolic 120 mm Hg 05/09/2024 Weight 190.8 lbs 05/09/2024 BMI 24.49 kg/m2 05/09/2024 Encounters Encounter Location Date Provider Diagnosis [facility] [address] [place] [id number] 05/09/2024 R Ajay Mir Abdominal pain R10.9 and GERD (gastroesophageal reflux disease) K21.9 Assessments Encounter Date Diagnosis (ICD Code) Assessment Notes Treatment Notes Treatment Clinical Notes Section Notes 05/09/2024 GERD (gastroesophag eal reflux disease) (ICD-10 - K21.9) 05/09/2024 Abdominal pain (ICD-10 - R10.9) 05/09/2024 Other Of note, his wi fe is being admitted for induction of labor at the end of the week. Anxiety may be contributing some to his symptoms. He is to notify office if his pain worsens or he experiences vomiting, fever, or blood in his stool. Plan Of Treatment No Information Insurance Providers Payer Name Payer Address Payer Phone Subscriber Number Group Number Insured Name Patient Relationship to Insured Coverage Start Date Coverage End Date FLO [employer] [facility] [address] [place] [address] [id number] LUKE KUMAR Self - patient is the insured Medical (General) History Surgical History Surgery Date(Month/Year) Appendectomy 08/2020
--- NOTE | 2025-03-27 11:44 | XR_ITS ---
FINAL REPORT CLINICAL HISTORY: COCCYX PAIN FINDINGS: AP and lateral views of the sacrum and coccyx were obtained. There is no prior exam for comparison. There is no acute fracture or other acute osseous abnormality. The SI joints are symmetric bilaterally. The sacrococcygeal articulation appears within normal limits. No acute soft tissue abnormality is present. IMPRESSION: No acute abnormality of the sacrum or coccyx. Reviewed, Interpreted and Dictated by Frida Lainez MD Transcribed by Norma De La Paz Authenticated and [facility]
== END 2025-03-27 23:59 | disposition home or self-care (01) ==
LOC: RAD 11:37
PROVIDERS: PCP Nurse Practitioner Family; Visit Provider Nurse Practitioner Family
DX: M53.3 Sacrococcygeal disorders, not elsewhere classified (principal)
CPT/HCPCS: 72220